=== PATIENT | male | born 1965 | race Caucasian/White ===

== ENCOUNTER 2018-01-16 18:42 | Emergency (ER) | payer SELFPAY ==
[~2018-01-16] VITALS: Ht 182.9 cm; Wt 114.0 kg
[2018-01-16 18:47] VITALS: BP 139/94
[2018-01-16] MEDS ORDERED: IBUPROFEN 200 MG TABLET PO ONE (19:00)
[2018-01-16] MEDS ORDERED: ACETAMINOPHEN 500 MG TABLET PO ONE (19:00)
[2018-01-16] MEDS ORDERED: ACETAMINOPHEN 500 MG TABLET ONE (19:39)
[2018-01-16] MEDS ORDERED: IBUPROFEN 200 MG TABLET ONE (19:39)
== END 2018-01-16 20:52 | disposition home or self-care (01) ==
LOC: ED 20:20
DX: B34.9 Viral infection, unspecified (principal)
CPT/HCPCS: 71046; 99284